=== PATIENT | male | born 1945 | race Caucasian/White ===

== ENCOUNTER 2018-07-08 11:00 | Day surgery (SDC) | payer OTHER, MEDICAID ==
[~2018-07-08] VITALS: Ht 170.2 cm; Wt 77.1 kg
[~2018-07-08 11:00] MED LIST: CEFAZOLIN SOD 1 GM in D5W 50 ML IV ONE
[2018-07-08] MEDS ORDERED: POLYMYXIN 500,000/BACIT.10,000 UNITS in NS IRR 1 L IR ONE (13:59)
[2018-07-08] MEDS ORDERED: LR 1,000 ML IV SCH (14:05)
[2018-07-08] MEDS ORDERED: METOCLOPRAMIDE HCL 10 MG/2 ML VIAL IVP PRN (14:15)
[2018-07-08] MEDS ORDERED: MORPHINE 4 MG/ML INJ. SYRINGE IVP PRN ×4 (14:15→18:15)
[2018-07-08] MEDS ORDERED: ePHEDrine sulfate 50 MG/ML VIAL ONE (17:45)
[2018-07-08] MEDS ORDERED: WATER FOR IRRIGATION,STERILE 1,000 ML IRRIG.SOLN IR ONE (17:45)
[2018-07-08] MEDS ORDERED: LR 1,000 ML IV.SOLN IV ONE (17:45)
[2018-07-08] MEDS ORDERED: SUGAMMADEX SODIUM 200 MG/2 ML VIAL IV ONE (17:45)
[2018-07-08] MEDS ORDERED: MIDAZOLAM HCL 5 MG/ML VIAL (VERSED) IV ONE (17:45)
[2018-07-08] MEDS ORDERED: ONDANSETRON HCL 4 MG/2 ML VIAL ONE (17:45)
[2018-07-08] MEDS ORDERED: BUPIVACAINE /EPINEPHRINE/PF 0.25% 30 ML VIAL INJ ONE (17:45)
[2018-07-08] MEDS ORDERED: PROPOFOL 200MG/ 20ML VIAL (DIPRIVAN) IV ONE (17:45)
[2018-07-08] MEDS ORDERED: NS IRRIG SOLN 1000 ML IR ONE (17:45)
[2018-07-08] MEDS ORDERED: SEVOFLURANE 15 MIN GAS INH ONE (17:45)
[2018-07-08] MEDS ORDERED: fentaNYL CITRATE 250 MCG/5 ML AMP ONE (17:45)
[2018-07-08] MEDS ORDERED: ROCURONIUM BROMIDE 10 MG/ML (ZEMURON) ONE (17:45)
[2018-07-08] MEDS ORDERED: HYDROcodone/ACETAMIN 5-325 MG TAB (NORCO/ VICODIN) PO PRN (18:15)
[2018-07-08] MEDS ORDERED: ONDANSETRON HCL 4 MG/2 ML VIAL IVP PRN (18:15)
[2018-07-08] MEDS ORDERED: HYDROcodone/ACETAMIN 7.5-325 MG TAB PO PRN (18:15)
[2018-07-08] MEDS ORDERED: HYDROmorphone 2 MG/ML VIAL IVP PRN (18:15)
[2018-07-08] MEDS ORDERED: MORPHINE 4 MG/ML INJ. SYRINGE ONE (18:22)
[2018-07-08] MEDS ORDERED: HYDR-4272 PO (18:56)
[2018-07-08 19:03] VITALS: BP_SYST 114
[2018-07-08] MEDS ORDERED: AMLO5TAB4 PO (19:15)
[2018-07-08] MEDS ORDERED: LEVO25TA7 PO (19:15)
[2018-07-08] MEDS ORDERED: TAMS-11 PO (19:15)
[2018-07-08] MEDS ORDERED: GLU500 PO (19:15)
[2018-07-08] MEDS ORDERED: BENA20TA9 PO (19:15)
[2018-07-08] MEDS ORDERED: PANT20TA2 PO (19:15)
[2018-07-08] MEDS ORDERED: COR12.5 PO (19:15)
[2018-07-08] MEDS ORDERED: PRAV40TA PO (19:15)
[2018-07-08 22:33] VITALS: BP_SYST 135
== END 2018-07-08 23:20 | disposition home or self-care (01) ==
LOC: SDS 11:00 → SMU 11:01 → SDS 23:20
PROVIDERS: ATTEND Surgery
DX: K40.90 Unilateral inguinal hernia, without obstruction or gangrene, not specified as recurrent (principal); Z79.899 Other long term (current) drug therapy; Z98.890 Other specified postprocedural states; E11.9 Type 2 diabetes mellitus without complications; E66.3 Overweight; K21.9 Gastro-esophageal reflux disease without esophagitis; I10 Essential (primary) hypertension; M19.90 Unspecified osteoarthritis, unspecified site
CPT/HCPCS: 49650; C1727; C1781; C9399; J0690; J2250; J2270; J2405; J2704; J3010; J3490; J7060; J7120